=== PATIENT | female | born 2000 | race Caucasian/White ===

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

== ENCOUNTER 2021-01-19 00:32 | Inpatient (IN) ==
[2021-01-19 01:13] LABS: Bacteria,Urine Few per hpf (None-Few); Bilirubin,Urine Negative (Negative); Blood,Urine Negative (Negative); Clarity,Urine Turbid (Clear); Color,Urine Colorless (Yellow); Glucose,Urine (UA) Normal (Normal); Ketones,Urine Negative (Negative); Leukocyte Esterase,Urine Large (Negative); Nitrite,Urine Negative (Negative); PH,Urine 6.5 pH Units (5.0-8.0); Protein,Urine Negative (Neg-Trace); Specific Gravity,Urine 1.006 (1.010-1.025); Squamous Epithelial Cell,Urine Moderate per hpf (None-Few); Urobilinogen,Urine Normal (Normal)
[2021-01-19 01:15] LABS: Basophils % 0.2 %; Eosinophils # 0.2 K/mcL (0.0-0.6); Eosinophils % 1.4 %; Hematocrit 40.5 % (35.3-44.9); Hemoglobin 13.3 g/dL (11.5-15.4); Immature Granulocytes % 0.5 % (0-4); Lymphocytes # 3.2 K/mcL (0.6-4.6); Lymphocytes % 24.6 %; Mean Corpuscular HGB Conc 32.8 g/dL (31.6-35.5); Mean Corpuscular Volume 100.5 fL (83.0-100.0); Mean Platelet Volume 9.5 fL (9.4-12.4); Monocytes # 0.7 K/mcL (0.0-1.3); Monocytes % 4.9 %; Platelet Count 439 K/mcL (140-400); Red Blood Count 4.03 M/mcL (3.82-4.97); Red Cell Distribution Width 12.4 % (11.5-14.5); Segmented Neutrophils % 68.4 %; White Blood Count 13.2 K/mcL (4.3-11.1)
[2021-01-19 01:21] LABS: Estimated Average Glucose 108 mg/dl; Hemoglobin A1C 5.4 %
[2021-01-19 01:22] LABS: Amphetamine Screen,Urine Negative ng/mL (Cutoff=1000); Barbiturate Screen,Urine Negative ng/mL (Cutoff=200); Benzodiazepines Screen,Urine Negative ng/mL (Cutoff=200); Cannabinoid Screen,Urine Positive ng/mL (Cutoff = 50); Cocaine Screen,Urine Negative ng/mL (Cutoff= 300); Opiate Screen,Urine Negative ng/mL (Cutoff=300); Phencyclidine Screen,Urine Negative ng/mL (Cutoff=25)
[2021-01-19 01:32] LABS: Acetaminophen < 10 mcg/mL (10-20); BUN/Creatinine Ratio 15 (6-26); Blood Urea Nitrogen 10 mg/dL (6-20); Calcium 8.8 mg/dL (8.6-10.3); Carbon Dioxide 21 mEq/L (23-29); Chloride 110 mEq/L (98-107); Chol/HDL Ratio 2.9 (0-4.9); Cholesterol 174 mg/dL (< 200); Ethanol 139 mg/dL (Less than 10); Glucose 92 mg/dL (70-105); HDL Cholesterol 60 mg/dL (40-59); LDL Cholesterol,Calculated 53 mg/dL (< 100); Osmolality,Calculated 291 (280-300); Potassium 3.3 mEq/L (3.5-5.1); Salicylate < 2.5 mg/dL (15.0-30.0); Sodium 141 mEq/L (136-145); Triglycerides 304 mg/dL (< 150); eGFR For African Americans > 60 (> 60); eGFR For Non-African Americans > 60 (> 60)
[2021-01-19 01:42] LABS: Influenza A PCR Negative (Negative); Influenza B PCR Negative (Negative); Resp. Syncytial Virus PCR Negative (Negative)
[2021-01-19 01:48] LABS: SARS-CoV-2 by PCR (In House) Negative (Negative)
[2021-01-19] MEDS ORDERED: Haloperidol Lactate 5 MG/ML VIAL IM PRN (11:13)
[2021-01-19] MEDS ORDERED: Acetaminophen 325 MG TABLET PO PRN (11:13)
[2021-01-19] MEDS ORDERED: hydrOXYzine pamoate 25 MG CAPSULE PO PRN (11:13)
[2021-01-19] MEDS ORDERED: Mag Hydrox/Al Hydrox/Simeth 30 ML UDC PO PRN (11:13)
[2021-01-19] MEDS ORDERED: *HR* LORazepam 1 MG TABLET PO PRN (11:13)
[2021-01-19] MEDS ORDERED: haloperidoL 5 MG TABLET PO PRN (11:13)
[2021-01-19] MEDS ORDERED: *HR* LORazepam 2 MG/ML VIAL IM PRN (11:13)
[2021-01-19] MEDS ORDERED: traZODone 50 MG TABLET PO PRN (11:13)
[2021-01-19] MEDS ORDERED: MOM Conc 10 ML UD.LIQ PO PRN (11:13)
[2021-01-19] MEDS: Nicotine 2 MG GUM BC PRN ×2 (12:59→19:55)
[2021-01-20] MEDS: Nicotine 2 MG GUM BC PRN ×5 (09:24→22:16)
[2021-01-20] MEDS ORDERED: Melatonin 3 MG TABLET PO SCH (21:00)
[2021-01-20] MEDS: Melatonin 3 MG TABLET PO SCH (21:30)
[2021-01-21] MEDS: Nicotine 2 MG GUM BC PRN ×6 (06:27→21:46)
[2021-01-21] MEDS: Melatonin 3 MG TABLET PO SCH (21:46)
[2021-01-22] MEDS: Nicotine 2 MG GUM BC PRN (09:50)
[2021-01-22 11:43] VITALS: BP 116/87; PULSE 111; TEMP 97.4; O2SAT 96
== END 2021-01-22 11:45 | disposition home or self-care (01) | DRG 753 ==
LOC: EMEROOARM 00:32 → 1ANU 09:25
PROVIDERS: ADMIT Psychiatry & Neurology Psychiatry; ATTEND Psychiatry & Neurology Psychiatry

== ENCOUNTER → 2022-01-14 17:48 | Observation (INO) | END | disposition home or self-care (01) | LOC: 1NENULAB | PROVIDERS: ADMIT Advanced Practice Midwife; ATTEND Advanced Practice Midwife ==

== ENCOUNTER 2022-01-19 16:23 | Inpatient (IN) ==
[2022-01-19 16:23] LABS: Basophils % 0.3 %; Eosinophils # 0.2 K/mcL (0.0-0.6); Eosinophils % 1.1 %; Hematocrit 35.8 % (35.3-44.9); Immature Granulocytes % 0.9 % (0-4); Lymphocytes % 28.4 %; Mean Corpuscular HGB Conc 33.5 g/dL (31.6-35.5); Mean Corpuscular Hemoglobin 33.6 pg (28.0-33.3); Mean Corpuscular Volume 100.3 fL (83.0-100.0); Mean Platelet Volume 11.2 fL (9.4-12.4); Monocytes # 0.6 K/mcL (0.0-1.3); Monocytes % 4.4 %; Neutrophils # 9.2 K/mcL (1.6-8.9); Platelet Count 416 K/mcL (140-400); Red Blood Count 3.57 M/mcL (3.82-4.97); Red Cell Distribution Width 13.3 % (11.5-14.5); Segmented Neutrophils % 64.9 %; White Blood Count 14.2 K/mcL (4.3-11.1)
[~2022-01-19 16:23] MED LIST: *HR* FentaNYL (PF) 100 MCG/2 ML VIAL ONE; Acetaminophen IV 1,000 MG/100 ML BAG IVPB ONE; CeFAZolin 2,000 MG/120 ML BAG IVPB ONE; Famotidine 20 MG/2 ML VIAL IVP ONE; Ketorolac 30 MG/ML VIAL ONE; Metoclopramide 10 MG/2 ML VIAL IVP ONE; OXYTOCIN/RINGERS LACTATE 10 UNIT/166.6 ML BAG IVC ONE; Ondansetron 4 MG/2 ML VIAL ONE; Oxytocin 30 UNIT/503 ML BAG IVC ONE; Ringers Solution, Lactated 1,000 ML ONE
[2022-01-19] MEDS ORDERED: Oxytocin 30 UNIT/503 ML BAG IVC SCH ×2 (16:30→20:16)
[2022-01-19] MEDS ORDERED: *HR* FentaNYL (PF) 100 MCG/2 ML VIAL ONE (17:08)
[2022-01-19 18:10] LABS: Amphetamine Screen,Urine Negative ng/mL (Cutoff=1000); Barbiturate Screen,Urine Negative ng/mL (Cutoff=200); Benzodiazepines Screen,Urine Negative ng/mL (Cutoff=200); Cannabinoid Screen,Urine Positive ng/mL (Cutoff = 50); Cocaine Screen,Urine Negative ng/mL (Cutoff= 300); Opiate Screen,Urine Positive ng/mL (Cutoff=300); Phencyclidine Screen,Urine Negative ng/mL (Cutoff=25)
[2022-01-19] MEDS ORDERED: Nicotine 21 MG PATCH.TD24 TD SCH (18:15)
[2022-01-19 19:42] LABS: Hepatitis B Surface Antigen Nonreactive (Nonreactive)
[2022-01-19 20:10] LABS: HIV-1&2 Antibody & p24 Ag Nonreactive (Nonreactive)
[2022-01-19] MEDS: Ibuprofen 600 MG TABLET PO SCH (20:15)
[2022-01-19] MEDS: Acetaminophen 325 MG TABLET PO SCH (20:15)
[2022-01-19] MEDS ORDERED: Metoclopramide 10 MG/2 ML VIAL IVP PRN (20:16)
[2022-01-19] MEDS ORDERED: Simethicone 80 MG TAB.CHEW PO PRN (20:16)
[2022-01-19] MEDS ORDERED: Morphine PCA 30 MG/ 30 ML 30 ML PCA.VIAL IVC PRN (20:16)
[2022-01-19] MEDS ORDERED: Naloxone 0.4 MG/ML INJ IVP PRN (20:16)
[2022-01-19] MEDS ORDERED: Ondansetron 4 MG/2 ML VIAL IVP PRN (20:16)
[2022-01-19] MEDS ORDERED: OXYTOCIN/RINGERS LACTATE 10 UNIT/166.6 ML BAG IVC ONE (20:16)
[2022-01-19] MEDS ORDERED: Ringers Solution, Lactated 1,000 ML IVC SCH (20:16)
[2022-01-19] MEDS ORDERED: Rho Immune Globulin 1,500 UNIT SYRINGE IM ONE (20:16)
[2022-01-19] MEDS ORDERED: *HR* OxyCODONE Immed Rel 5 MG TABLET PO PRN (20:16)
[2022-01-19 22:03] LABS: Varicella Zoster IgG Antibody Negative
[2022-01-19 23:42] LABS: Rubella IgG Antibody Negative (POSITIVE)
[2022-01-20] MEDS: Acetaminophen 325 MG TABLET PO SCH ×3 (03:13→14:26)
[2022-01-20] MEDS: Ibuprofen 600 MG TABLET PO SCH ×3 (03:13→14:27)
[2022-01-20 04:04] LABS: White Blood Count 15.2 K/mcL (4.3-11.1)
[2022-01-20 04:05] LABS: Basophils % 0.1 %; Hematocrit 27.1 % (35.3-44.9); Immature Granulocytes % 0.7 % (0-4); Lymphocytes # 1.9 K/mcL (0.6-4.6); Lymphocytes % 12.6 %; Mean Corpuscular HGB Conc 33.6 g/dL (31.6-35.5); Mean Corpuscular Hemoglobin 34.1 pg (28.0-33.3); Mean Corpuscular Volume 101.5 fL (83.0-100.0); Mean Platelet Volume 11.4 fL (9.4-12.4); Monocytes # 0.6 K/mcL (0.0-1.3); Monocytes % 3.7 %; Neutrophils # 12.6 K/mcL (1.6-8.9); Platelet Count 345 K/mcL (140-400); Red Blood Count 2.67 M/mcL (3.82-4.97); Red Cell Distribution Width 13.4 % (11.5-14.5); Segmented Neutrophils % 82.9 %
[2022-01-20 04:14] LABS: Hemoglobin 9.1 g/dL (11.5-15.4)
[2022-01-20 07:15] VITALS: BP 118/71; PULSE 78; TEMP 98.7; O2SAT 96
[2022-01-20] MEDS: metroNIDAZOLE 500 MG TABLET PO SCH ×2 (08:05→14:26)
[2022-01-20] MEDS: cephALEXin 500 MG CAPSULE PO SCH ×2 (08:05→14:26)
[2022-01-20] MEDS ORDERED: Prenatal Vit/FA 1 EACH TABLET PO SCH (09:00)
[2022-01-20] MEDS ORDERED: Sodium Ferric Gluconat/Sucrose 125 MG in 0.9 % Sodium Chloride 100 ML IVPB ONE (11:48)
[2022-01-20] MEDS ORDERED: FLUoxetine HCl 10 MG CAPSULE PO SCH (12:00)
== END 2022-01-20 15:00 | disposition home or self-care (01) | DRG 540 ==
LOC: 1NENULAB → 1NENUOBS 20:15
PROVIDERS: ADMIT Obstetrics & Gynecology; ATTEND Obstetrics & Gynecology